=== PATIENT | male | born 1970 | race Caucasian/White ===

== ENCOUNTER 2021-10-08 21:11 | Emergency (ER) | payer OTHER | END 2021-10-09 02:20 | LOC: LB.ED 21:11 | DX: T58.91XA Toxic effect of carbon monoxide from unspecified source, accidental (unintentional), initial encounter (principal); Z20.822 Contact with and (suspected) exposure to COVID-19 | CPT/HCPCS: 36415; 70450; 71046; 80048; 80307; 83605; 84484; 85025; 88740; 93005; 99285-25; A0425; A0429; U0002 ==